=== PATIENT | female | born 2000 | race Caucasian/White ===

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

== ENCOUNTER 2018-04-23 15:38 | Emergency (ER) | payer OTHER ==
[2018-04-23 15:50] VITALS: BP 117/65; PULSE 70; TEMP 98; BMI 27.0
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
== END 2018-04-23 16:46 | disposition home or self-care (01) ==
LOC: JERFT 15:38
DX: S03.41XA Sprain of jaw, right side, initial encounter (principal); V43.62XA Car passenger injured in collision with other type car in traffic accident, initial encounter; Y92.414 Local residential or business street as the place of occurrence of the external cause; Y93.89 Activity, other specified; Y99.8 Other external cause status
CPT/HCPCS: 99281-25

== ENCOUNTER 2018-04-23 22:40 | Emergency (ER) | payer OTHER ==
[2018-04-23 22:56] VITALS: BP 119/66; PULSE 83; TEMP 98.7; BMI 27.0
== END 2018-04-23 23:30 | disposition left against medical advice (07) ==
LOC: JER 22:40
DX: Z53.21 Procedure and treatment not carried out due to patient leaving prior to being seen by health care provider (principal)
CPT/HCPCS: 99281-25

== ENCOUNTER 2019-02-11 12:22 | Inpatient (IN) | payer OTHER ==
--- NOTE | 2019-02-11 14:16 | PDOC ---
History of Present Illness - General Chief Complaint: Pain, Acute Stated Complaint: ABD PAIN Time Seen by Provider: 02/11/19 13:02 History Source: Patient Exam Limitations: No Limitations - History of Present Illness Initial Comments: 02/11/19 13:54 PCP: Meka Mtz [employer]: Herminio (requesting new one) HPI: 18yo F pmh hypothyroid, asthma, iron deficiency anemia, seen at urgent care yesterday found to have UTI, DC with keflex, patient with continued, increased suprapubic pain (and to the RLQ). Patient pain continued to worsen today, presented to her PCP this morning and was told to go to the ER out of concern for appendicitis. Patient endorses 3 days of diffuse abdominal pain worsening over the past 24 hours. Denies dysuria, pain, foul odors, endorses frequency and urgency. Reports good appetite - requesting food in the ED. Denies fevers, chills, nausea, vomiting, CP, SOB. All: NKDA Meds: Synthroid 25 mcg, iron, albuterol PMH: As above PSH: Denies Past History - Travel Traveled outside of the country in the last 30 days: No Close contact w/someone who was outside of country & ill: No - Past Medical History Allergies/Adverse Reactions: Allergies Allergy/AdvReac Type Severity Reaction Status Date / Time No Known Allergies Allergy Verified 02/11/19 12:39 Home Medications: Ambulatory Orders Ferrous Sulfate [Iron] 325 mg PO DAILY 02/11/19 Levothyroxine [Synthroid -] 25 mcg PO DAILY@0700 02/11/19 Amox-Tr/K Cl [Augmentin 500-125mg Tablet -] 1 tab PO BID@0800,1730 #10 tablet COPD: No Thyroid Disease: Yes - Immunization History Immunization Up to Date: Yes - Psycho Social/Smoking Cessation Hx Smoking History: Never smoked Hx Alcohol Use: No Drug/Substance Use Hx: No Review of Systems - Review of Systems Able to Perform ROS?: Yes Is the patient limited Romansh proficient: Yes Constitutional: No: Chills, Diaphoresis, Fever HEENTM: No: Recent change in vision, Nose Congestion, Throat Pain Respiratory: No: Cough, Shortness of Breath, Wheezing Cardiac (ROS): No: Chest Pain, Edema, Irregular Heart Rate, Palpitations, Syncope, Chest Tightness ABD/GI: No: Blood Streaked Bowels, Constipated, Diarrhea, Nausea, Poor Appetite , Poor Fluid Intake, Rectal Bleeding, Vomiting, Tarry Stools : Yes: Frequency, Urgency. No: Burning, Dysuria, Discharge Musculoskeletal: No: Back Pain, Muscle Pain, Muscle Weakness Integumentary: No: Erythema, Pallor, Rash Neurological: No: Headache, Numbness, Tingling, Weakness Psychiatric: No: Stressors, Change in Appetite Endocrine: No: Increased Urine, Unexplained Weight Gain Hematologic/Lymphatic: No: Anemia, Blood Clots, Easy Bleeding All Other Systems: Reviewed and Negative *Physical Exam - Vital Signs Last Vital Signs Temp Pulse Resp BP Pulse Ox 99.9 F H 85 16 140/82 99 02/11/19 12:36 02/11/19 12:36 02/11/19 12:36 02/11/19 12:36 02/11/19 12:36 - Physical Exam 02/11/19 15:08 VITALS: AFVSS GEN: Well appearing, NAD, comfortable. AAOx3. HEENT: NC/AT, EOMI, PERRLA. No facial asymmetry. Moist mucous membranes. Normal voice. Supple neck w/ FROM. CV: S1/S2, RRR, no m/r/g LUNG: CTAB, no wheezes, crackles, rales, rhonchi. GI: Soft, RLQ tenderness, +rebound, negative Rovsings, Psoas, +BS, no guarding, no rebound. No masses. EXTREMITIES: 2+ distal pulses. No LE edema. No obvious deformities of all extremities. SKIN: Warm, dry, no rashes appreciated. PSYCH: Normal mood and affect. NEURO: Moving all extremities well. SSE: Normal external genitalia, copious thick white discharge, no lesions or bleeding, closed OS BME: No CMT, no masses appreciated ED Treatment Course - LABORATORY CBC & Chemistry Diagram: 02/13/19 07:18 02/13/19 07:18 Medical Decision Making - Medical Decision Making 02/11/19 15:09 18yo F PMH hypothyroid, asthma, iron deficiency anemia, seen at urgent care yesterday found to have UTI, DC with keflex, patient with continued, increased suprapubic pain (and to the RLQ). On keflex, with worsening abdominal pain despite UTI treatment. Cyst noted on right ovary in August. Exam stable with RLQ tenderness concerning for appendicitis vs [employer] pathology. DDX: Appendicitis, ectopic, TOA, PID, less likely torsion, colitis. Candidiasis on exam. - CBC, CMP, Preg, Coags, T&S - UA, UCx - Pelvic US - CTAP - 1L IVF 02/11/19 16:23 - Mild Leukocytosis - CMP, Pending - CTAP and US pending - UA without signs of blood / bacteria, pt s/p 2x keflex doses (1/5PM and 1/6AM) 02/11/19 17:47 - TVUS with 2cm R ovarian cyst, small volume pelvic free fluid - CTAP Pending official read 02/11/19 18:00 - CTAP with appendicitis without abscess 02/11/19 18:19 - Case discussed with Dr. De Jesus - Nick ordered - Maintenance IVF ordered - Dinner tray ordered - NPO after midnight Dispo: Admit Med/Surg with plan for AM surgery 02/11/19 18:35 - Patient ordered for Fluconazol for clinical vaginal candidiasis Sign-out given to inpatient team, attending pending Discharge - Discharge Information Problems reviewed: Yes Clinical Impression/Diagnosis: Vaginal candidiasis Acute appendicitis Qualifiers: Acute appendicitis type: with localized peritonitis Appendicitis gangrene presence: unspecified whether gangrene present Appendicitis perforation presence : without perforation Appendicitis abscess presence: without abscess Qualified Code(s): K35.30 - Acute appendicitis with localized peritonitis, without perforation or gangrene Condition: Stable Disposition: HOME - Admission Yes - Follow up/Referral - Patient Discharge Instructions - Post Discharge Activity
[2019-02-11] MEDS ORDERED: SODIUM CHLORIDE 0.9% 500 ML INFUS.BAG IV ONE (15:10)
--- NOTE | 2019-02-11 15:33 | PDOC ---
Documentation entered by Krupa Jones SCRIBE, acting as scribe for Rosa Hastings MD. Rosa Hastings MD: This documentation has been prepared by the Karen meyer Brenda, SCRIBE, under my direction and personally reviewed by me in its entirety. I confirm that the documentation accurately reflects all work, treatment, procedures, and medical decision making performed by me. Attending Attestation - Resident Resident Name: GaryAndrés - ED Attending Attestation I have performed the following: I have examined & evaluated the patient, The case was reviewed & discussed with the resident, I agree w/resident's findings & plan, Exceptions are as noted - HPI HPI: 02/11/19 13:06 The patient is a 18 year old female with a PMH of anemia, hypothyroidism and asthma who presents to the ED for superpubic abdomianl pain (more on RLQ). Patient reports being seen at urgent care yesterday and diagnosed with a UTI and discharged (on keflex), however the pain has been constant and not resolved prompting her arrival to the ED. Surgical Hx: None reported Social History: No reported hx of tobacco use, alcohol use or illicit drug use. PCP: Meka Mtz - Physicial Exam PE: 02/11/19 14:28 GENERAL: The patient is in no acute distress. ENT: Moist mucous membranes. NECK: Normal range of motion, supple, no nuchal rigidity LUNGS: Breath sounds equal, clear to auscultation bilaterally. No wheezes, and no crackles. HEART: Regular rate and rhythm, normal S1 and S2 without murmur, rub or gallop. ABDOMEN: (+) RLQ tenderness to palpation. (+) Rovsings positive. Soft, normoactive bowel sounds. (+) Rebound No guarding, No masses palpable. EXTREMITIES: Normal range of motion, no edema. NEUROLOGICAL: Cranial nerves II through XII grossly intact. Normal speech. No focal neurological deficits. SKIN: Warm, Dry, normal turgor, no rashes or lesions noted. - Medical Decision Making 02/11/19 15:31 18-year-old female presenting to the emergency department with a complaint of right lower quadrant pain Patient had a recent diagnosis of urinary tract infection Is being treated for that No fevers chills Tolerating p.o. No anorexia Differential diagnosis includes but is not limited to: Ovarian pathology (torsion versus cyst), appendicitis, colitis Doubt kidney stone Will do: Lab CT UA IV fluid Tylenol Reassess Signed out to Dr. Mc pending Labs and CT
[2019-02-11 15:37] LABS: BASO % 0.5 % (0-2.0); EOS % 0.4 % (0-4.5); HEMOGLOBIN 11.3 GM/dL (10.7-15.3); LYMPH % 13.1 % (8-40); MCH 27.7 pg (25.7-33.7); MCHC 32.3 g/dl (32.0-36.0); MEAN CELL VOLUME 85.7 fl (80-96); MEAN PLT VOLUME 8.8 fl (7.5-11.1); MONO % 7.4 % (3.8-10.2); NEUT % 78.6 % (42.8-82.8); PLATELET COUNT 291 K/MM3 (134-434); RBC 4.08 M/mm3 (3.60-5.2); WHITE BLOOD COUNT 13.7 K/mm3 (4.0-10.0)
[2019-02-11 15:37] LABS: PH,URINE 6.5 (5.0-8.0); URINE APPEARANCE CLEAR; URINE BILIRUBIN NEGATIVE (NEGATIVE); URINE COLOR YELLOW; URINE GLUCOSE (UA) NEGATIVE (NEGATIVE); URINE KETONE 1+ (NEGATIVE); URINE LEUK ESTERASE NEGATIVE (NEGATIVE); URINE NITRITE NEGATIVE (NEGATIVE); URINE PROTEIN NEGATIVE (NEGATIVE); URINE UROBILINOGEN 0.2 mg/dL (0.2-1.0)
[2019-02-11 15:46] LABS: INR 1.19 (0.83-1.09); PROTHROMBIN TIME (PATIENT) 14.1 SEC (9.7-13.0)
[2019-02-11 16:20] LABS: ALBUMIN 4.3 g/dl (3.4-5.0); BILIRUBIN,TOTAL 0.3 mg/dL (0.2-1); BLOOD UREA NITROGEN 6.2 mg/dL (7-18); CALCIUM 9.1 mg/dL (8.5-10.1); CREATININE 0.6 mg/dL (0.55-1.3); POTASSIUM 3.8 mmol/L (3.5-5.1); TOT PROT 8.1 g/dl (6.4-8.2)
[2019-02-11] MEDS ORDERED: PIPERACILLIN/TAZOB 3.375 GM 3.375 GM in DEXTROSE 5%-WATER - 50 ML IVPB ONE (18:18)
[2019-02-11] MEDS ORDERED: SODIUM CHLORIDE 1,000 ML IV SCH (18:30)
[2019-02-11] MEDS ORDERED: FLUCONAZOLE 50 MG TABLET PO ONE (18:33)
--- NOTE | 2019-02-11 19:26 | PN ---
Teaching Attending Note Name of Resident: Jamilah Roy ATTENDING PHYSICIAN STATEMENT I saw and evaluated the patient. I reviewed the resident's note and discussed the case with the resident. I agree with the resident's findings and plan as documented. SUBJECTIVE: Patient is a 18 year old woman with a PMH of Hypothyroidism, Asthma and Iron deficiency anemia, seen at an Urgent [facility] Center yesterday and found to have UTI. Was discharged on Keflex but patient continued to have increased suprapubic pain (and to the RLQ). Pain continued to worsen today and her PCP told her to go to the ER out of concern for appendicitis. Patient has 3 days of diffuse abdominal pain worsening over the past 24 hours. Denies dysuria, pain, foul odors, but has frequency and urgency. Reports good appetite - requesting food in the ER. Denies fevers, chills, nausea, vomiting, chest pain, SOB or headache. No recent sick contacts or travel. Patient is sexually active with one partner and they use condoms. She is not on oral contraceptives. Her LMP was 01/28/2019. Denies alcohol, tobacco or illicit drug use. All: NKDA OBJECTIVE: Alert Vital Signs Period Temp Pulse Resp BP Sys/Mccord Pulse Ox Last 24 Hr 99.9 F 82-85 16-18 119-140/70-82 99-100 HEENT: No Jaundice, eye redness or discharge, PERRLA, EOMI. Normocephalic, atraumatic. External ears are normal and hearing is grossly intact. No nasal discharge. Neck: Supple, nontender. No palpable adenopathy or thyromegaly. No JVD Chest: Good effort. Clear to auscultation and percussion. Heart: Regular. No S3, rub or murmur Abdomen: Not distended, soft, nontender and no HSM. No rebound or guarding. Normal bowel sounds. Ext: Peripheral pulses intact. No leg edema. Skin: Warm and dry. No petechiae, rash or ecchymosis. Pelvic: Thick copious white vaginal discharge noted by ER staff. Neuro: Alert. Oriented x3. CN 2-12 grossly intact. Sensation grossly intact in all four extremities and DTR are symmetric. Psych: Appropriate mood and affect. Good insight. Current Medications Generic Name Dose Route Start Last Admin Trade Name Freq PRN Reason Stop Dose Admin Sodium Chloride 1,000 mls @ 125 mls/hr 02/11/19 18:30 02/11/19 19:06 Normal Saline - IV 125 mls/hr ASDIR YENI Administration Home Medications Medication Instructions Recorded NK [No Known Home Medication] 02/11/19 Abnormal Lab Results 02/11/19 02/11/19 02/11/19 14:35 14:43 14:43 WBC 13.7 H Absolute Neuts (auto) 10.8 H PT with INR INR BUN 6.2 L Urine Ketones 1+ H 02/11/19 14:43 WBC Absolute Neuts (auto) PT with INR 14.10 H INR 1.19 H BUN Urine Ketones ASSESSMENT AND PLAN: 1. Appendicitis - CT scan of abdomen/pelvis with IV contrast showed appendicitis. Surgery has been consulted by ER staff. Patient being kept NPO and started on IV Zosyn (to also cover ?UTI) and IV NS. Being treated with fluconazole for possible vaginal candidiasis. Transvaginal sonogram showed a 2 cm right ovarian cyst and small free pelvic fluid. Will continue comprehensive care for all of patients comorbid conditions. 2. DVT prophylaxis - SCD 3. Advance directives - Full code
[2019-02-11] MEDS ORDERED: FLUCONAZOLE 150 MG TABLET PO ONE (19:38)
--- NOTE | 2019-02-11 20:09 | HP ---
CHIEF COMPLAINT: Abdominal pain PCP: Dr. Mtz HISTORY OF PRESENT ILLNESS: Ms. Diaz is a 18 year old female with PMH of hypothyroidism, asthma, iron deficiency anemia who presents with abdominal pain x3 days. Pt first began experiencing suprapubic discomfort 3 days ago with mild dysuria. She went to urgent care yesterday and was diagnosed with a UTI and sent home with Keflex ( she took once last night and once this morning). Today, her pain worsened to diffuse abdominal pain, most severe in the RLQ. She denies fevers, chills, nausea, vomiting, diarrhea, constipation. Pt has not taken anything for pain. She endorses a decent appetite. LMP: 01/28/2019 Sexually active with one partner, uses condoms. No OCPs ER course was notable for: (1) WBC: 13.7 (2) CTAP: Acute appendicitis with no definite abscess; mild perivesicle soft tissue along ventral half of bladder. 2cm ovarian cyst/follicle w/o intraluminal debris/blood, small amount of free fluid (3) UA: 1+ ketones Recent Travel: denies PAST MEDICAL HISTORY: As per HPI PAST SURGICAL HISTORY: Denies Social History: Smoking: denies Alcohol: denies Drugs: denies Allergies No Known Allergies Allergy (Verified 02/11/19 12:39) HOME MEDICATIONS: Home Medications Medication Instructions Recorded NK [No Known Home Medication] 02/11/19 REVIEW OF SYSTEMS CONSTITUTIONAL: Absent: fever, chills, diaphoresis, generalized weakness, malaise, loss of appetite, weight change HEENT: Absent: rhinorrhea, nasal congestion, throat pain, throat swelling, difficulty swallowing, mouth swelling, ear pain, eye pain, visual changes CARDIOVASCULAR: Absent: chest pain, syncope, palpitations, irregular heart rate, lightheadedness , peripheral edema RESPIRATORY: Absent: cough, shortness of breath, dyspnea with exertion, orthopnea, wheezing, stridor, hemoptysis GASTROINTESTINAL: abdominal pain Absent: abdominal distension, nausea, vomiting, diarrhea, constipation, melena, hematochezia GENITOURINARY: dysuria Absent: frequency, urgency, hesitancy, hematuria, flank pain, genital pain MUSCULOSKELETAL: Absent: myalgia, arthralgia, joint swelling, back pain, neck pain SKIN: Absent: rash, itching, pallor HEMATOLOGIC/IMMUNOLOGIC: Absent: easy bleeding, easy bruising, lymphadenopathy, frequent infections ENDOCRINE: Absent: unexplained weight gain, unexplained weight loss, heat intolerance, cold intolerance NEUROLOGIC: Absent: headache, focal weakness or paresthesias, dizziness, unsteady gait, seizure, mental status changes, bladder or bowel incontinence PSYCHIATRIC: Absent: anxiety, depression, suicidal or homicidal ideation, hallucinations. PHYSICAL EXAMINATION Vital Signs - 24 hr 02/11/19 02/11/19 12:36 16:49 Temperature 99.9 F H Pulse Rate 85 Pulse Rate [ 82 Radial] Respiratory 16 18 Rate Blood Pressure 140/82 Blood Pressure 119/70 [Right Arm] O2 Sat by Pulse 99 100 Oximetry (%) GENERAL: Awake, alert, and fully oriented, in no acute distress. HEAD: Normal with no signs of trauma. EYES: Pupils equal, round and reactive to light, extraocular movements intact, sclera anicteric, conjunctiva clear. No lid lag. EARS, NOSE, THROAT: Ears normal, nares patent, oropharynx clear without exudates. Moist mucous membranes. NECK: Normal range of motion, supple without lymphadenopathy, JVD, or masses. LUNGS: Breath sounds equal, clear to auscultation bilaterally. No wheezes, and no crackles. No accessory muscle use. HEART: Regular rate and rhythm, normal S1 and S2 without murmur, rub or gallop. ABDOMEN: Tender in RLQ w/rebound, (-) Rosvings, (+) Psoas. Soft, not distended, normoactive bowel sounds, no masses. No hepatomegaly or splenomegaly. White vaginal discharge. MUSCULOSKELETAL: Normal range of motion at all joints. No bony deformities or tenderness. No CVA tenderness. UPPER EXTREMITIES: 2+ pulses, warm, well-perfused. No cyanosis. No clubbing. No peripheral edema. LOWER EXTREMITIES: 2+ pulses, warm, well-perfused. No calf tenderness. No peripheral edema. NEUROLOGICAL: Cranial nerves II-XII intact. Normal speech. Normal gait. PSYCHIATRIC: Cooperative. Good eye contact. Appropriate mood and affect. SKIN: Warm, dry, normal turgor, no rashes or lesions noted, normal capillary refill. Laboratory Results - last 24 hr CBC, BMP 02/11/19 14:43 02/11/19 14:43 Urine Test Results Urine Color Yellow Urine Appearance Clear Urine pH 6.5 (5.0-8.0) Ur Specific [place] 1.015 (1.010-1.035) Urine Protein Negative (NEGATIVE) Urine Glucose (UA) Negative (NEGATIVE) Urine Ketones 1+ (NEGATIVE) H Urine Blood Negative (NEGATIVE) Urine Nitrite Negative (NEGATIVE) Urine Bilirubin Negative (NEGATIVE) Ur Leukocyte Esterase Negative (NEGATIVE) ASSESSMENT/PLAN: Ms. Diaz is a 18 year old female with PMH of hypothyroidism, asthma, iron deficiency anemia who presents with abdominal pain x3 days. #Acute appendicitis CTAP:Acute appendicitis with no definite abscess; mild perivesicle soft tissue along ventral half of bladder. 2cm ovarian cyst/follicle w/o intraluminal debris/blood, small amount of free fluid Pt given zosyn 3.375mg in ED. Will give one more dose in am empirically in case of abscess formation or perforation while pt awaits surgery. Surgery consulted (Dr. De Jesus) and will operate in am Pre-op labs IV NS @ 125ml/hr IV tylenol Q6H prn for pain NPO after midnight #Vaginal candidiasis Fluconazole po x1 dose given #Hypothyroidism Cont home meds: synthroid 25mcg daily post-operatively #Asthma Well controlled, pt has not used albuterol inhaler in >1 year #Iron deficiency anemia Pt takes herbal iron supplements #FEN IV NS @ 12ml/hr NPO after midnight #DVT ppx SCDs pending surgery #Dispo Monitor on med-surg Visit type - Emergency Visit Emergency Visit: Yes ED Registration Date: 02/11/19 Care time: The patient presented to the Emergency Department on the above date and was hospitalized for further evaluation of their emergent condition. - New Patient This patient is new to me today: Yes Date on this admission: 02/12/19 - Critical Care Critical Care patient: No ATTENDING PHYSICIAN STATEMENT I saw and evaluated the patient. I reviewed the resident's note and discussed the case with the resident. I agree with the resident's findings and plan as documented. SUBJECTIVE: OBJECTIVE: ASSESSMENT AND PLAN:
[2019-02-11] MEDS ORDERED: ACETAMINOPHEN 1000 MG/100 ML VIAL (NON FORMULARY) IVPB PRN (23:02)
[2019-02-12 00:38] VITALS: BMI 27.4
[2019-02-12] MEDS ORDERED: PIPERACILLIN/TAZOB 3.375 GM 3.375 GM in DEXTROSE 5%-WATER - 50 ML IVPB ONE (04:01)
[2019-02-12 07:54] LABS: BASO % 0.5 % (0-2.0); EOS % 0.6 % (0-4.5); HEMATOCRIT 31.4 % (32.4-45.2); HEMOGLOBIN 10.3 GM/dL (10.7-15.3); MCH 27.8 pg (25.7-33.7); MCHC 32.7 g/dl (32.0-36.0); MEAN PLT VOLUME 9.3 fl (7.5-11.1); MONO % 11.7 % (3.8-10.2); NEUT % 69.2 % (42.8-82.8); PLATELET COUNT 242 K/MM3 (134-434); RBC 3.69 M/mm3 (3.60-5.2); RDW 14.7 % (11.6-15.6)
[2019-02-12 08:13] LABS: ALBUMIN 3.3 g/dl (3.4-5.0); BILIRUBIN,TOTAL 0.6 mg/dL (0.2-1); BLOOD UREA NITROGEN 4.8 mg/dL (7-18); CALCIUM 8.6 mg/dL (8.5-10.1); CREATININE 0.5 mg/dL (0.55-1.3); POTASSIUM 3.9 mmol/L (3.5-5.1); TOT PROT 6.4 g/dl (6.4-8.2)
--- NOTE | 2019-02-12 09:29 | EKG ---
Test Reason : Blood Pressure : / mmHG Vent. Rate : 097 BPM Atrial Rate : 097 BPM P-R Int : 144 ms QRS Dur : 084 ms QT Int : 338 ms P-R-T Axes : 052 069 026 degrees QTc Int : 429 ms SINUS RHYTHM WITH OCCASIONAL PREMATURE VENTRICULAR COMPLEXES NONSPECIFIC T WAVE ABNORMALITY ABNORMAL ECG WHEN COMPARED WITH ECG OF 27-OCT-2017 15:01, PREMATURE VENTRICULAR COMPLEXES ARE NOW PRESENT Confirmed by Angel Grace MD ([id number]) on 02/12/2019 9:28:57 AM Referred By: Confirmed By:Angel Grace MD
[2019-02-12] MEDS ORDERED: LEVOTHYROXINE NA 25 MCG TABLET (FP) PO SCH (10:00)
[2019-02-12] MEDS ORDERED: ACETAMINOPHEN 325 MG TABLET (FP) PO PRN (10:21)
[2019-02-12] MEDS ORDERED: oxyCODONE HCL 5 MG TABLET PO PRN ×3 (10:21→13:13)
[2019-02-12] MEDS ORDERED: morphine SULFATE 4 MG/ML VIAL IVPB PRN (10:21)
[2019-02-12] MEDS ORDERED: SUCCINYLCHOLINE CHLORIDE 200 MG/10 ML SYRINGE ONE (10:28)
[2019-02-12] MEDS ORDERED: ROCURONIUM BROMIDE 50 MG/5 ML SYRINGE ONE (10:28)
[2019-02-12] MEDS ORDERED: MIDAZOLAM HCL 2 MG/2 ML SINGLE DOSE VIAL ONE (10:28)
[2019-02-12] MEDS ORDERED: fentaNYL CITRATE 250 MCG/5 ML VIAL ONE (10:28)
[2019-02-12] MEDS ORDERED: PROPOFOL 20 ML ONE (10:28)
[2019-02-12] MEDS ORDERED: ONDANSETRON 4 MG/2 ML VIAL ONE (10:29)
[2019-02-12] MEDS ORDERED: DEXAMETHASONE SOD PHOSPHATE 4 MG/1 ML VIAL ONE (10:29)
--- NOTE | 2019-02-12 10:34 | OP ---
Operative Note - Note: Operative Date: 02/12/19 Pre-Operative Diagnosis: acute appendicitis Operation: laparoscopic appendectomy, lavage Findings: inflamed,non perforated appendix, acute and chronic changes Post-Operative Diagnosis: Same as Pre-op Surgeon: Gaurang De Jesus Anesthesiologist/FELLMONGERING MACHINE OPERATOR: Murali Salinas Anesthesia: General Specimens Removed: appendix Estimated Blood Loss (mls): 10 Operative Report Dictated: Yes
--- NOTE | 2019-02-12 10:46 | CONS ---
DATE OF CONSULTATION: 02/12/2019 REASON FOR CONSULTATION: Acute appendicitis. This is an emergency room consultation at the request of the emergency room physician. BRIEF HISTORY: This is a 18-year-old female who presented to [facility] Emergency Room with a 3-day history of abdominal pain that had migrated to her right lower quadrant. She had earlier been seen in urgent care, diagnosed with urinary tract infection, but her symptoms persisted. Pain got worse, and she came into [facility] Emergency Room. Therefore, she had a CAT scan of her abdomen and pelvis, which was consistent with acute appendicitis. She was started on Zosyn antibiotic overnight. She feels somewhat better. She has had 1 low-grade fever 100.5. She denies nausea, denies vomiting. PAST MEDICAL HISTORY: Significant for hypothyroid, asthma, and anemia. PAST SURGICAL HISTORY: Nil. SOCIAL HISTORY: Negative for alcohol. Negative for tobacco. ALLERGIES: She has no known drug allergies. FAMILY HISTORY: Noncontributory. HOME MEDICATIONS: Include Synthroid and iron. REVIEW OF SYSTEMS: General: Denies fatigue or malaise. Cardiac: Denies chest pain or palpitations. Respiratory: Denies shortness of breath or wheeze. Gastrointestinal: As stated in HPI. Denies diarrhea. Denies blood in her stool. Denies recent weight loss. Genitourinary: Denies dysuria. Musculoskeletal: Denies joint pain. Psychiatric: Denies anxiety, depression, or hearing voices. PHYSICAL EXAMINATION: General: This is a well-developed, well-nourished 18-year-old female in no acute distress. Vital Signs: She is currently afebrile. HEENT: Her head is normocephalic. Sclerae anicteric. Neck: Supple. Chest: Clear. Abdomen: Soft. It is nondistended. She has localized right lower quadrant tenderness with rebound and guarding. She has no surgical scars. She has no obvious hernias. Extremities: She has no edema in her extremities. DIAGNOSTIC DATA: On review of her laboratory, white blood cell count is 13,000. There is a shift. Her chemistries are unremarkable. She is not . Her urinalysis is negative for urinary tract infection at [facility]. On review of her imaging, her CAT scan of her abdomen and pelvis. Impression notes acute appendicitis without abscess. There is a right ovarian cyst. There is a small amount of pelvic free fluid, and there is possible cystitis noted on the bladder. ASSESSMENT: This is a 18-year-old female with right lower quadrant pain. Peritoneal findings in right lower quadrant, low-grade fever, leukocytosis, and CAT scan evidence of appendicitis. Clinically, this is acute appendicitis. She is specifically noted to have an appendicolith, enlarged appendix, and inflammatory changes. PLAN: I agree with admission. I agree with Zosyn antibiotic to cover E. coli and other enteric-related tomas. At this point, we will move in the direction of surgery. Risks and benefits of surgery have been explained to the patient in detail. These are including, but not limited to, the possibility of conversion to open, the possibility of injury to viscera or bladder, the possibility of blood loss requiring blood transfusion, the possibility of future obstruction, the possibility of future hernia, the possibility of infection, the possibility of staple line dehiscence plus a multitude of medical risks including, but not limited to, cardiac, neurologic, pulmonary, and vascular complications, even . Patient understands these risks and is agreeable to surgery. She has also been offered medical management of appendicitis and declined. She prefers a more definitive nature of surgery, the likely decreased length of stay, the ability to pathologically evaluate the appendix, prevention of future recurrence, and the avoidance of future diagnostic uncertainty. DO SEDRICK BENSON/[id number]
[2019-02-12] MEDS ORDERED: GLYCOPYRROLATE 0.2 MG/1 ML VIAL ONE (11:36)
[2019-02-12] MEDS ORDERED: KETOROLAC TROMETHAMINE 30 MG/1 ML VIAL ONE (11:36)
[2019-02-12] MEDS ORDERED: NEOSTIGMINE METHYLSULFATE 0.5 MG/1 ML - 10 ML MDV ONE (11:37)
--- NOTE | 2019-02-12 11:40 | CON.ID ---
Consult Consult Specialty:: infectious diseases - Past Medical History ...LMP: 01/28/19 ...: No - Alcohol/Substance Use Hx Alcohol Use: No - Smoking History Smoking history: Never smoked Have you smoked in the past 12 months: No Home Medications - Allergies Allergies/Adverse Reactions: Allergies Allergy/AdvReac Type Severity Reaction Status Date / Time No Known Allergies Allergy Verified 02/11/19 12:39 - Home Medications Home Medications: Ambulatory Orders Ferrous Sulfate [Iron] 325 mg PO DAILY 02/11/19 Levothyroxine [Synthroid -] 25 mcg PO DAILY@0700 02/11/19 Physical Exam Vital Signs: Vital Signs Temperature 98.3 F 02/12/19 05:55 Pulse Rate 101 H 02/12/19 05:55 Respiratory Rate 17 02/12/19 05:55 Blood Pressure 119/62 02/12/19 05:55 O2 Sat by Pulse Oximetry (%) 98 02/12/19 00:19 Labs: CBC, BMP 02/12/19 06:35 02/12/19 06:35
[2019-02-12] MEDS ORDERED: SODIUM CHLORIDE 1,000 ML IV SCH (12:05)
[2019-02-12] MEDS ORDERED: PROMETHAZINE HCL 25 MG/1 ML VIAL IVPB PRN (13:13)
[2019-02-12] MEDS ORDERED: ONDANSETRON 4 MG/2 ML VIAL IVPUSH PRN (13:13)
--- NOTE | 2019-02-12 16:18 | OP ---
DATE OF OPERATION: 02/12/2019 PREOPERATIVE DIAGNOSIS: Acute appendicitis. POSTOPERATIVE DIAGNOSIS: Acute appendicitis. PROCEDURE: Laparoscopic appendectomy and lavage. SURGEON: Gaurang De Jesus DO RN VISITING: None. ANESTHESIOLOGIST: Murali Salinas MD INTRAOPERATIVE FINDINGS: An acute on chronic inflamed appendix, adhesed down to the pelvic brim, nonperforated. BLOOD LOSS: Minimal. COMPLICATIONS: None. DRAINS: None. BRIEF HISTORY: This is a 18-year-old, female who presented to [facility] emergency room with signs and symptoms of acute appendicitis. She presents now for surgery. PROCEDURE: The patient was placed in the supine position. After general anesthesia was initiated, the abdomen was prepped and draped in sterile fashion and a Pearson catheter had already been inserted. Next, a vertical incision was made infraumbilical with the scalpel used to go through skin and subcutaneous tissue. The fascia was then lifted with a Satish clamp, incised vertically. The peritoneum was entered bluntly. A 0 Vicryl stitch was placed across the fascial defect and used to secure the Mimi trocar. Pneumoperitoneum was then created, followed by insertion of a 5-mm, 30-degree laparoscope. Two 5-mm trocars were placed, one suprapubic and 1 in the left lower quadrant. Attention was turned toward the right lower quadrant and the appendix was seen. It was thicken and inflamed. It appeared to be acute on chronic inflammation with the tip heading into the pelvis underneath the ovary. This was taken out of the pelvis with sharp dissection. The mesentery of the appendix appeared to be chronically inflamed, as well. A window was made at its base. The LigaSure device was used to divide the mesoappendix in multiple welds. The ligament of Treitz was dissected off of the attachments to the cecum. At this point, the Endo JINNY Ultra purple load, 60-mm stapler was used to divide a portion of the cecal cap with the appendix in one firing. The staple line was inspected and was intact. There was no bleeding, no breaks, and no sign of ischemia. At this point, the appendix was placed in a specimen bag, removed through the infraumbilical trocar site, and sent to Pathology marked as specimen. A limited lavage was done and all return was clear. Some inflammatory fluid in the pelvis was suctioned and irrigated. A small right ovarian cyst was noted. The trocars were then removed under direct visualization, as no bleeding was noted, and pneumoperitoneum was released. The fascia of the infraumbilical trocar site was closed with multiple interrupted 0 Vicryl sutures and the 3 skin incisions were closed with Biosyn. Dermabond dressing was placed. Overall, the patient tolerated procedure well with no complications. The patient's disposition was to recovery room in stable condition. DO SEDRICK BENSON/[id number] MTDD
--- NOTE | 2019-02-12 17:52 | PN ---
Physical Exam: SUBJECTIVE: Patient seen and examined at the bedside. s/p appendectomy. doing well post op, only sore on surgery site, wants to go home. OBJECTIVE: d/c when cleared by surgery, no acute post op issues surgery site c/d/i Patient is a 18 year old female with a past medical history of hypothyroidism, asthma, iron deficiency anemia who presents with abdominal pain x3 days. CT imaging showed acute appendicitis and she is now s/p appendectomy with Dr. De Jesus. imaging: CTAP: Acute appendicitis with no definite abscess; mild perivesicle soft tissue along ventral half of bladder. 2cm ovarian cyst/follicle w/o intraluminal debris /blood, small amount of free fluid Vital Signs Period Temp Pulse Resp BP Sys/Mccord Pulse Ox Last 24 Hr 98.1 F-100.5 F 73-101 14-20 102-132/61-80 98-100 GENERAL: The patient is awake, alert, and fully oriented, in no acute distress. HEAD: Normal with no signs of trauma. EYES: PERRL, extraocular movements intact, sclera anicteric, conjunctiva clear. No ptosis. ENT: Ears normal, nares patent, oropharynx clear without exudates, moist mucous membranes. NECK: Trachea midline, full range of motion, supple. LUNGS: Breath sounds equal, clear to auscultation bilaterally, no wheezes HEART: Regular rate and rhythm ABDOMEN: Soft, nontender, surgical site secured with surgical glue, +bowel sounds, abdomen soft, non distended. EXTREMITIES: no edema. NEUROLOGICAL: Normal speech, gait not observed. PSYCH: Normal mood, normal affect. SKIN: Warm, dry, normal turgor, no rashes or lesions noted Laboratory Results - last 24 hr 02/12/19 02/12/19 06:35 06:35 WBC 13.0 H RBC 3.69 Hgb 10.3 L Hct 31.4 L MCV 85.0 MCH 27.8 MCHC 32.7 RDW 14.7 Plt Count 242 MPV 9.3 Absolute Neuts (auto) 9.0 H Neutrophils % 69.2 Lymphocytes % 18.0 D Monocytes % 11.7 H Eosinophils % 0.6 Basophils % 0.5 Nucleated RBC % 0 Sodium 141 Potassium 3.9 Chloride 109 H Carbon Dioxide 23 Anion Gap 8 BUN 4.8 L Creatinine 0.5 L Est GFR (CKD-EPI)AfAm 161.48 Est GFR (CKD-EPI)NonAf 139.32 Random Glucose 95 Calcium 8.6 Total Bilirubin 0.6 AST 13 L ALT 15 Alkaline Phosphatase 75 Total Protein 6.4 Albumin 3.3 L Active Medications Generic Name Dose Route Start Last Admin Trade Name Freq PRN Reason Stop Dose Admin Acetaminophen 650 mg 02/12/19 10:21 Tylenol - PO Q4H PRN FEVER Enoxaparin Sodium 40 mg 02/13/19 10:00 Lovenox - SQ DAILY YENI Sodium Chloride 1,000 mls @ 125 mls/hr 02/12/19 12:05 02/12/19 13:30 Normal Saline - IV 0 mls ASDIR YENI Administration Levothyroxine Sodium 25 mcg 02/13/19 07:00 Synthroid - PO DAILY@0700 YENI Oxycodone HCl 5 mg 02/12/19 13:13 Roxicodone - PO Q4H PRN PAIN LEVEL 1-5 Oxycodone HCl 10 mg 02/12/19 13:13 02/12/19 14:40 Roxicodone - PO 10 mg Q4H PRN Administration PAIN LEVEL 6-10 Pantoprazole Sodium 40 mg 02/13/19 10:00 Protonix Iv IVPUSH DAILY YENI ASSESSMENT/PLAN: Problem List - Problems (1) Acute appendicitis Assessment/Plan: s/p laparoscopic appendectomy, lavage post op care: monitor vitals, early ambulation, monitor intake output, bowel regimen, incentive spirometer d/c when cleared by surgery received zosyn prior to surgery, id consulted for further antibiotic recommendations Code(s): K35.80 - UNSPECIFIED ACUTE APPENDICITIS Qualifiers: Acute appendicitis type: with localized peritonitis Appendicitis gangrene presence: unspecified whether gangrene present Appendicitis perforation presence: without perforation Appendicitis abscess presence: without abscess Qualified Code(s): K35.30 - Acute appendicitis with localized peritonitis, without perforation or gangrene (2) Hypothyroidism Assessment/Plan: continue home synthroid Code(s): E03.9 - HYPOTHYROIDISM, UNSPECIFIED Visit type - Emergency Visit Emergency Visit: Yes ED Registration Date: 02/11/19 Care time: The patient presented to the Emergency Department on the above date and was hospitalized for further evaluation of their emergent condition. - New Patient This patient is new to me today: Yes Date on this admission: 02/12/19 - Critical Care Critical Care patient: No - Discharge Referral Referred to [facility] No
[2019-02-13] MEDS ORDERED: LEVOTHYROXINE NA 25 MCG TABLET (FP) PO SCH (07:00)
[2019-02-13 08:21] LABS: BASO % 0.2 % (0-2.0); HEMATOCRIT 29.7 % (32.4-45.2); HEMOGLOBIN 9.6 GM/dL (10.7-15.3); LYMPH % 9.5 % (8-40); MCH 27.5 pg (25.7-33.7); MCHC 32.3 g/dl (32.0-36.0); MEAN CELL VOLUME 85.1 fl (80-96); MEAN PLT VOLUME 8.9 fl (7.5-11.1); MONO % 8.4 % (3.8-10.2); NEUT % 81.9 % (42.8-82.8); PLATELET COUNT 248 K/MM3 (134-434); RDW 14.9 % (11.6-15.6); WHITE BLOOD COUNT 15.2 K/mm3 (4.0-10.0)
[2019-02-13] MEDS ORDERED: AMOX TR/POT CLAV 500MG/125MG TABLETS (FP) PO SCH (08:34)
--- NOTE | 2019-02-13 09:00 | PN ---
Progress Note (short form) - Note Progress Note: SURGERY 18yo F s/p lap appy POD 1, pt seen and examined at bedside. Pt states that she is feeling much better. Pt denies n/v, fever, chills, cp, or SOB. Pt is urinating and ambulating well. Last Vital Signs Temp Pulse Resp BP Pulse Ox 97.9 F 95 H 18 106/60 98 02/13/19 06:00 02/13/19 06:00 02/13/19 06:00 02/13/19 06:00 02/12/19 21:00 CBC, BMP 02/13/19 07:18 PE: Gen: A&O X3 Resp: breathing comfortably Abd: soft, nondistended, mild RLQ tenderness, incisions clean with no erythema or discharge Ext: no edema Problem List - Problems (1) Acute appendicitis Assessment/Plan: Plan -pt appears to be doing well, pt cleared for discharge from surgery standpoint -please send home with 5 days of Augmentin -follow up with Dr. De Jesus in the office in 1 week. Pt discussed with Dr. De Jesus who agrees with plan Code(s): K35.80 - UNSPECIFIED ACUTE APPENDICITIS Qualifiers: Acute appendicitis type: with localized peritonitis Appendicitis gangrene presence: unspecified whether gangrene present Appendicitis perforation presence: without perforation Appendicitis abscess presence: without abscess Qualified Code(s): K35.30 - Acute appendicitis with localized peritonitis, without perforation or gangrene
[2019-02-13 09:01] LABS: ALBUMIN 3.3 g/dl (3.4-5.0); BILIRUBIN,TOTAL 0.5 mg/dL (0.2-1); CALCIUM 8.9 mg/dL (8.5-10.1); CREATININE 0.5 mg/dL (0.55-1.3); TOT PROT 6.6 g/dl (6.4-8.2)
--- NOTE | 2019-02-13 09:46 | DS ---
Physical Exam: SUBJECTIVE: Patient seen and examined. ambulating in hallways, ate breakfast, passing gas and abdomen feels well. denies any pain/nausea or vomiting. OBJECTIVE: cleared by surgery for discharge ------ Patient is a 18 year old female with a past medical history of hypothyroidism, asthma, iron deficiency anemia who presents with abdominal pain x3 days. CT imaging showed acute appendicitis and she is now s/p POD [address] Conley. imaging: CTAP: Acute appendicitis with no definite abscess; mild perivesicle soft tissue along ventral half of bladder. 2cm ovarian cyst/follicle w/o intraluminal debris /blood, small amount of free fluid Vital Signs Vital Signs Period Temp Pulse Resp BP Sys/Mccord Pulse Ox Last 24 Hr 97.5 F-98.5 F 73-99 14-20 106-132/53-80 98-100 PHYSICAL EXAM GENERAL: The patient is awake, alert, and fully oriented, in no acute distress. ambulating HEAD: Normal with no signs of trauma. EYES: PERRL, extraocular movements intact, sclera anicteric, conjunctiva clear. No ptosis. ENT: Ears normal, nares patent, oropharynx clear without exudates, moist mucous membranes. NECK: Trachea midline, full range of motion, supple. LUNGS: Breath sounds equal, clear to auscultation bilaterally, no wheezes HEART: Regular rate and rhythm ABDOMEN: Soft, nontender, surgical site secured with surgical glue, +bowel sounds, abdomen soft, non distended. EXTREMITIES: no edema. NEUROLOGICAL: Normal speech, gait not observed. PSYCH: Normal mood, normal affect. LABS Laboratory Results - last 24 hr 02/13/19 02/13/19 07:18 07:18 WBC 15.2 H RBC 3.50 L Hgb 9.6 L Hct 29.7 L MCV 85.1 MCH 27.5 MCHC 32.3 RDW 14.9 Plt Count 248 MPV 8.9 Absolute Neuts (auto) 12.5 H Neutrophils % 81.9 Lymphocytes % 9.5 D Monocytes % 8.4 Eosinophils % 0.0 D Basophils % 0.2 Nucleated RBC % 0 Sodium 139 Potassium 4.0 Chloride 107 Carbon Dioxide 24 Anion Gap 9 BUN 7.0 Creatinine 0.5 L Est GFR (CKD-EPI)AfAm 161.48 Est GFR (CKD-EPI)NonAf 139.32 Random Glucose 113 H Calcium 8.9 Total Bilirubin 0.5 AST 11 L ALT 16 Alkaline Phosphatase 70 Total Protein 6.6 Albumin 3.3 L HOSPITAL COURSE: Date of Admission:02/11/19 Date of Discharge: 02/13/19 Minutes to complete discharge: 45 Discharge Summary Problems reviewed: Yes Reason For Visit: APPENDICITIS Current Active Problems Acute appendicitis (Acute) Hypothyroidism (Acute) Vaginal candidiasis (Acute) Condition: Stable - Instructions Diet, Activity, Other Instructions: Post Operative Instructions Physical activity Resume your normal everyday activity as tolerated no heavy lifting or exercise until seen by your surgeon. You may walk unlimited amounts of and climb stairs. You may resume driving the car when you feel safe and comfortable behind the wheel and no longer taking narcotics. Wound care If you have a bandage, leave it on, and keep dry. You may shower 1day after surgery but do not submerge the incisions. Do not apply lotion or ointments to incisions. Diet There are no dietary restrictions. Eat healthy, high-fiber foods. Drink 6 to 8 glasses of liquid each day. This will assist in keeping your bowels are regular. Pain management You may take Tylenol or acetaminophen or Ibuprofen (for example, Motrin, Advil etc.) Any pain prescription medication ordered should be taken as prescribed for moderate to severe pain. Call Dr. Conley for any of the following: Severe pain not relieved by medication Fever of 101 or higher Excessive bleeding or drainage on dressing Inability to urinate If you experience any chest pain or shortness of breath please seek emergency treatment. Call the office to confirm your post operative appointment. MEDICATIONS: Augmentin 500mg TWICE per day at 8am and 8pm, take with food for 5 days total ( from 02/13/19 to 02/17/19). Referrals: Meka Mtz MD [Primary Care Provider] - Gaurang Conley MD [Staff Physician] - 1 Week Disposition: HOME - Home Medications Comprehensive Discharge Medication List: Ambulatory Orders Ferrous Sulfate [Iron] 325 mg PO DAILY 02/11/19 Levothyroxine [Synthroid -] 25 mcg PO DAILY@0700 02/11/19 Amox-Tr/K Cl [Augmentin 500-125mg Tablet -] 1 tab PO BID@0800,1730 #10 tablet Problem List - Problems (1) Acute appendicitis Assessment/Plan: s/p laparoscopic appendectomy, lavage POD #1 vitals stable, ambulating, eating without difficulty, no nausea/vomiting/or gas pain. received zosyn prior to surgery, and will discharge on augmentin 500mg BID x 5 days cleared for d/c home by surgery follow up with Dr. conley outpatient Code(s): K35.80 - UNSPECIFIED ACUTE APPENDICITIS Qualifiers: Acute appendicitis type: with localized peritonitis Appendicitis gangrene presence: unspecified whether gangrene present Appendicitis perforation presence: without perforation Appendicitis abscess presence: without abscess Qualified Code(s): K35.30 - Acute appendicitis with localized peritonitis, without perforation or gangrene (2) Hypothyroidism Assessment/Plan: continue home synthroid Code(s): E03.9 - HYPOTHYROIDISM, UNSPECIFIED This patient is new to me today: No Emergency Visit: Yes ED Registration Date: 02/11/19 Care time: The patient presented to the Emergency Department on the above date and was hospitalized for further evaluation of their emergent condition. Critical Care patient: No - Discharge Referral Referred to [facility] No
[2019-02-13] MEDS ORDERED: ENOXAPARIN NA (PORCINE) 40 MG/0.4 ML DISP.SYRIN SQ SCH (10:00)
[2019-02-13] MEDS ORDERED: PANTOPRAZOLE SODIUM 40 MG VIAL IVPUSH SCH (10:00)
[2019-02-13 10:53] VITALS: BP 120/59; PULSE 77; TEMP 98.8
--- NOTE | 2019-02-13 11:03 | PN ---
Progress Note (short form) - Note Progress Note: 18F POD#1 lap appy under GETA. No anesthesia related complications. pt. doing well this am. lying in bed comfortably. vss.
[2019-02-13] MEDS ORDERED: PT OWN MED DRAWER 7, Y5N ONE (11:05)
--- NOTE | 2019-02-13 16:20 | PATH ---
Surgical Pathology Report Patient Name: BOBBI AGUILA Med. Rec. #: [id number] /Age/Gender: 2000 (Age: 18) / F Account: [id number] Location: [facility] MED/SURG Taken: 02/12/2019 Received: 02/12/2019 Reported: 02/13/2019 Physicians: Gaurang De Jesus M.D. Specimen(s) Received APPENDIX Clinical History Appendicitis Final Diagnosis APPENDIX, APPENDECTOMY: ACUTE APPENDICITIS AND PERIAPPENDICITIS. Electronically Signed Mayra Pratt M.D. Gross Description Received in formalin, labeled "appendix," is an 8 cm. in length vermiform appendix with a stapled margin of resection and abundant attached fat. The serosa is hilton red with attached exudate. Sectioning reveals blood and pus within the lumen. The wall of the appendix averages 0.2 cm. in thickness. [facility] sections are submitted in one cassette. /02/12/2019 saudi/02/12/2019
== END 2019-02-13 11:52 | disposition home or self-care (01) | DRG 225 ==
LOC: JER 12:22 → JERBED 17:59 → J8W 23:34
PROVIDERS: ADMIT Internal Medicine; ATTEND Nurse Practitioner Family
PROC: 3E1M38Z Irrigation of Peritoneal Cavity using Irrigating Substance, Percutaneous Approach (ICD-10-PCS; 2019-02-12)
PROC: 0DTJ4ZZ Resection of Appendix, Percutaneous Endoscopic Approach (ICD-10-PCS; principal; 2019-02-12 10:00)
DX: K35.890 Other acute appendicitis without perforation or gangrene (principal); D64.9 Anemia, unspecified; E03.9 Hypothyroidism, unspecified; D50.0 Iron deficiency anemia secondary to blood loss (chronic); J45.909 Unspecified asthma, uncomplicated; N83.201 Unspecified ovarian cyst, right side; B37.3 Candidiasis of vulva and vagina
CPT/HCPCS: 36415; 74177-TC; 76830-TC; 80053; 81003; 84703; 85025; 85610; 85730; 86850; 86900; 86901; 87086; 88304-TC; 93005; 93010; 94760; 99283-25; J0131; J7030; Q9967